=== PATIENT | male | born 1995 | race Caucasian/White ===

== ENCOUNTER 2022-03-30 14:11 | Emergency (ER) | payer OTHER | END 2022-03-30 15:43 | disposition home or self-care (01) | LOC: MW.ED 14:11 | DX: S06.0X0A Concussion without loss of consciousness, initial encounter (principal); S50.02XA Contusion of left elbow, initial encounter; W23.1XXA Caught, crushed, jammed, or pinched between stationary objects, initial encounter | CPT/HCPCS: 73090-26-RT; 73090-RT; 99283 ==